=== PATIENT | female | born 1940 | race Caucasian/White ===

== ENCOUNTER → 2018-12-25 16:58 | Outpatient (CLI) | payer MEDICARE ==
[2012-12-17 23:03] VITALS: BMI 29.2
[~2018-12-25 16:58] MED LIST: ACETAMINOPHEN500 M1 PO; ARMOUR THYROID90 MG PO; AZULFIDINE500 MG PO; BACLOFEN10 MG PO; CELEBREX200 MG PO; CEREFOLIN TAB1 TAB PO; CITRUCEL500 MG PO; COLCRYS0.6 MG PO; DEMEROL50 MG PO; DILAUDID2 MG PO; ELAVIL25 MG PO; FOLATE0.4 MG PO; METOPROLOL SUCC ER PO; MEVACOR20 MG PO; OS-CAL 500+D TA1 TAB PO; POLY HIST FORTE PO; PREDNISONE5 MG PO; PRILOSEC20 MG PO; PROBIOTIC1 EAC1 PO; SYNTHROID25 MCG PO; TOPAMAX50 MG PO; TOPROL XL100 MG PO; ULTRAM50 MG; VITAMIN D2000 UNIT PO; ZOLOFT100 MG PO; ZOVIRAX200 MG
[2019-01-21 13:07] VITALS: BMI 25.9
== END | disposition home or self-care (01) ==
LOC: D.LABREF 16:58
PROVIDERS: ATTEND Orthopaedic Surgery
DX: M19.011 Primary osteoarthritis, right shoulder (principal); Z11.8 Encounter for screening for other infectious and parasitic diseases

== ENCOUNTER 2018-12-26 11:10 | Inpatient (IN) | payer MEDICARE, BC ==
[~2018-12-26] VITALS: Ht 157.5 cm; Wt 64.4 kg
[~2018-12-26 11:10] MED LIST changes: -AZULFIDINE500 MG PO; -BACLOFEN10 MG PO; -CEREFOLIN TAB1 TAB PO; -COLCRYS0.6 MG PO; -DILAUDID2 MG PO; -METOPROLOL SUCC ER PO; -POLY HIST FORTE PO; -PREDNISONE5 MG PO; -PROBIOTIC1 EAC1 PO; -SYNTHROID25 MCG PO
[2019-01-17] MEDS ORDERED: METOPROLOL SUCC ER PO (12:03)
[2019-01-17] MEDS ORDERED: COLCRYS0.6 MG PO (12:05)
[2019-01-17] MEDS ORDERED: SYNTHROID25 MCG PO (12:05)
[2019-01-17] MEDS ORDERED: POLY HIST FORTE PO (12:06)
[2019-01-17] MEDS ORDERED: AZULFIDINE500 MG PO (12:07)
[2019-01-17] MEDS ORDERED: PREDNISONE5 MG PO (12:07)
[2019-01-17] MEDS ORDERED: CEREFOLIN TAB1 TAB PO (12:08)
[2019-01-17] MEDS ORDERED: BACLOFEN10 MG PO (12:08)
[2019-01-17] MEDS ORDERED: ACETAMINOPHEN500 M1 PO (12:09)
[2019-01-17] MEDS ORDERED: PROBIOTIC1 EAC1 PO (12:09)
[2019-01-17 12:30] LABS: BASOPHILS 0.7 % (0-2); EOSINOPHILS 1.3 % (0-7); HEMATOCRIT 36.2 % (36.0-48.0); HEMOGLOBIN 12.2 g/dL (12-16); IMMATURE GRANULOCYTES 0.2 % (0-5); LYMPHOCYTES 28.7 % (15-50); MCH 33.2 pg (26.0-34.0); MCHC 33.7 g/dL (31.0-37.0); MCV 98.4 fL (80.0-100.0); MEAN PLATELET VOLUME 9.6 fL (7.4-10.4); MONOCYTES 6.5 % (2-11); NEUTROPHILS 62.6 % (40-80); PLATELET COUNT 199 10x3/uL (130-400); RBC 3.68 10x6/uL (4.00-5.40); RDW 12.4 % (11.5-14.5)
[2019-01-17 12:56] LABS: APTT 29.5 SECONDS (22.8-39.4); INR 0.95 (0.85-1.17); PROTIME 12.2 SECONDS (11.6-15.0)
[2019-01-17 13:01] LABS: ANION GAP 11.5 mmol/L (8-16); CALCIUM 9.2 mg/dL (8.5-10.1); CARBON DIOXIDE 30.4 mmol/L (21.0-32.0); CREATININE - SERUM 0.9 mg/dL (0.6-1.3); POTASSIUM - SERUM 4.9 mmol/L (3.5-5.1)
[2019-01-17 13:21] LABS: APPEARANCE HAZY (CLEAR); BILIRUBIN NEGATIVE (NEGATIVE); COLOR YELLOW (YELLOW); GLUCOSE NEGATIVE (NEGATIVE); KETONE NEGATIVE (NEGATIVE); NITRITE NEGATIVE (NEGATIVE); PROTEIN NEGATIVE (NEGATIVE); SPECIFIC GRAVITY 1.015 (1.005-1.020); UROBILINOGEN NORMAL (NORMAL)
[2019-01-17 13:22] LABS: BACTERIA FEW /hpf (NONE SEEN); EPITHELIAL CELLS 0-5 /hpf (0-5); MUCUS <1+ /lpf (NONE SEEN); RED CELLS - URINE RARE /hpf (0-5); WHITE CELLS - URINE 0-5 /hpf (0-5)
[2019-01-21] VITALS (12 sets, daily range): BP systolic 105–134; BP diastolic 50–98; Ht 157.5 cm; Wt 64.4 kg
--- NOTE | 2019-01-21 11:17 | NUR ---
PLASMA BLADE SET TO 6/8 BOVIE PAD RIGHT FLANK [id number] EXP 03/11/20
--- NOTE | 2019-01-21 23:07 | NUR ---
PT RESTING IN BED. EYES CLOSED. NO SIGNS OF DISTRESS. BREATHING EVEN AND UNLABORED. IV SITE LT HAND DRESSING CLEAN DRY AND INTACT. NO SIGNS OF INFECTION. RT SHOULDER SLING. RT SHOULDER DRESSING CLEAN DRY AND INTACT. BOWEL SOUNDS ACITVE. WILL CONTINUE PLAN OF CARE. CALL LIGHT IN REACH. BED LOWERED AND LOCKED. BED RAILS UP X2.
[2019-01-22 01:17] VITALS: BP 125/61
--- NOTE | 2019-01-22 02:53 | NUR ---
I have reviewed this patient and I concur with the Shift Assessment completed by the Licensed Practical Nurse today this shift.
[2019-01-22 04:59] VITALS: BP 108/46
[2019-01-22 06:31] LABS: HEMATOCRIT 30.1 % (36.0-48.0); HEMOGLOBIN 10.2 g/dL (12-16); MCH 32.8 pg (26.0-34.0); MCHC 33.9 g/dL (31.0-37.0); MCV 96.8 fL (80.0-100.0); MEAN PLATELET VOLUME 10.1 fL (7.4-10.4); RBC 3.11 10x6/uL (4.00-5.40); RDW 12.3 % (11.5-14.5); WBC 7.4 10x3/uL (4.8-10.8)
--- NOTE | 2019-01-22 07:23 | NUR ---
PT IS RESTING IN BED WITH EYES OPEN. RESPIRATIONS ARE EVEN AND UNLABORED. FAMILY IS AT BEDSIDE. PT REPORTS SLIGHT PAIN. HAT BRUSHER MACHINE DILAUDID AVAILABLE. RIGHT ARM/SHOULDER IN SLING. PT DENIES PRESENCE OF N/V. PT REPORTS FEELING TO RIGHT UPPER EXTREMITY AND IS ABLE TO WIGGLE FINGERS. BED IS IN THE LOWEST POSITION. CALL LIGHT AND BEDSIDE TABLE ARE WITHIN REACH. SIDE RAILS X 2. PT DENIES FURTHER NEEDS. WILL CONT TO MONITOR.
[2019-01-22 08:07] VITALS: BP 106/54
[2019-01-22] MEDS ORDERED: DILAUDID2 MG PO (08:49)
--- NOTE | 2019-01-22 10:18 | NUR ---
ALL DISCHARGE INSTRUCTIONS COVERED WITH PT AND PT SPOUSE. DRESSING TO RIGHT SHOULDER CHANGED PER ORDER. PT GIVEN EXTRA SUPPLIES FOR DRESSING CHANGE IN 7 DAYS. PRINTED RX FOR DILAUDID TABS GIVEN TO PT. PT REUQESTS THAT SIGN DISCHARGE PAPERS DUE TO BEING RIGHT HANDED. PT DENIES FURTHER QUESTIONS CONCERNS AT THIS TIME. PIV REMOVED FROM LEFT HAND REMOVED WITH CATHETER TIP INTACT. DRESSING APPLIED. ALL DISCHARGE PAPERS SIGNED. PT DENIES FURTHER NEEDS.
--- NOTE | 2019-01-22 11:23 | NUR ---
PT TRANSPORTED FROM ROOM VIA WHEELCHAIR BY HOSPITAL STAFF. SLING IN ON RIGHT SHOULDER. PT DENIES FURTHER QUESTIONS/CONCERNS/NEEDS AT THIS TIME.
--- NOTE | 2019-01-31 09:16 | OP ---
PATIENT NAME: WOO MURO MEDICAL RECORD: [id number] :41 LOCATION:D[id number] ADMISSION DATE:01/21/19 SURGEON: EMILE BUNN MD DATE OF OPERATION: 01/21/2019 PREOPERATIVE DIAGNOSIS: Degenerative arthritis of the right shoulder. POSTOPERATIVE DIAGNOSIS: Degenerative arthritis of the right shoulder. PROCEDURE: Total shoulder arthroplasty. SURGEON: Emile Bunn MD [employer] UTILITY WORKER: Chintan Griffin APN INTRAOPERATIVE COMPLICATIONS: None. SUMMARY OF PATHOLOGIC FINDINGS: The patient was indeed found to have a substantial glenohumeral arthrosis. IMPLANTS USED: Tornier total shoulder arthroplasty with a size 43 x 16 Aequalis head, standard 6B stem press fit and a quarter-lock peg glenoid small. OPERATIVE SUMMARY IN DETAIL: After obtaining the appropriate preoperative orthopedic surgery consent as well as anesthetic consultation, evaluation and clearance, the patient was brought to the operating room and placed on the operating table in supine position. After general laryngeal mask airway was administered, the patient was placed in the beach chair position. All pressure points were well padded. She was held firmly to the operating table using the vacuum pack suction system. Right upper extremity and shoulder were then prepped and draped in routine sterile fashion. The arm was held in the Trimano arm holding device. After appropriate prep and drape was done, deltopectoral incision was created. The cephalic vein was identified and protected. The deltoid was retracted using the Brown retractor. Clavipectoral fascia was incised. Conjoined tendon was gently retracted medially. Subscapularis was taken down. The humeral head was then dislocated into the incision site. Proximal humeral cut was done by serial and sequential reaming and broaching for a size 6. A 6 trial was put into place with the head protection cover. Attention was then turned to the glenoid. Circumferential labrectomy was then followed by the appropriate reaming and preparation of the glenoid for a size small pegged glenoid. After drying this, the pegged glenoid was cemented into place. All excess cement was removed. The cement was allowed to harden before proceeding. After the cement was dry, attention was then turned to the proximal humerus. A size 6B glenoid with the appropriate size 43 humeral head was put into place and tamped into position. The shoulder was then reduced, taken through a range of motion, had the appropriate posterior subluxation of approximately half. Having completed this, the subscapularis was reapproximated back into the lesser tuberosity in a transosseous fashion while doing a biceps tenodesis done by Elvin Griffin and final wound closure with #1 Vicryl, 2-0 Vicryl and skin silke. Sterile dressings were applied. The patient was awakened and taken to recovery room in stable condition. All final needle and sponge counts were correct. TRANSINT:[id number] Voice Confirmation ID: [id number] DOCUMENT ID: [id number] OPERATIVE REPORT [id number] WOO MURO MD, EMILE WISE at 0916 CC: [id number] DICTATION DATE: 01/30/19 1127 COPPER TAPPER: 01/30/19 1223 DIS IN 01/22/19 [facility] [address] [place] [address]
== END 2019-01-22 11:28 | disposition home or self-care (01) | DRG 483 ==
LOC: D.SDCHOLD 01-21 07:40 → D.MS 01-21 07:40 → D.SDCHOLD 01-21 09:45 → D.MS 01-21 11:59 → D.SDCHOLD 01-21 12:50 → D.MS 01-22 11:28
PROVIDERS: ADMIT Orthopaedic Surgery; ATTEND Orthopaedic Surgery
PROC: 0RRJ0JZ Replacement of Right Shoulder Joint with Synthetic Substitute, Open Approach (ICD-10-PCS; principal; 2019-01-21 09:45)
DX: M19.011 Primary osteoarthritis, right shoulder (principal)

== ENCOUNTER 2020-10-29 07:58 | Day surgery (SDC) | payer MEDICARE, BC ==
[2020-10-26 13:10] LABS: EOSINOPHILS 4.4 % (0-7); HEMATOCRIT 34.3 % (36.0-48.0); HEMOGLOBIN 11.5 g/dL (12-16); LYMPHOCYTES 15.3 % (15-50); MCH 32.5 pg (26.0-34.0); MCHC 33.5 g/dL (31.0-37.0); MEAN PLATELET VOLUME 7.1 fL (7.4-10.4); MONOCYTES 8.4 % (2-11); NEUTROPHILS 70.9 % (40-80); PLATELET COUNT 279 10x3/uL (130-400); RBC 3.54 10x6/uL (4.00-5.40); RDW 13.4 % (11.5-14.5); WBC 7.6 10x3/uL (4.8-10.8)
[2020-10-26 13:16] LABS: ANION GAP 14.2 mmol/L (8-16); CALCIUM 9.3 mg/dL (8.5-10.1); CARBON DIOXIDE 25.7 mmol/L (21.0-32.0); CREATININE - SERUM 1.2 mg/dL (0.6-1.3); POTASSIUM - SERUM 4.9 mmol/L (3.5-5.1)
[~2020-10-29] VITALS: Ht 157.5 cm; Wt 63.6 kg
[2020-10-29] VITALS (13 sets, daily range): BP systolic 112–160; BP diastolic 53–82; Ht 157.5 cm; Wt 63.6 kg
--- NOTE | ~2020-10-29 | OP ---
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 PROCEDURE: Anterior cervical diskectomy and fusion at C3-C4 with PEEK interbody cage with Sara bone allograft, separate [facility] anterior cervical plate and screws. SURGEON: Moises Abraham MD DESCRIPTION OF PROCEDURE: After induction of general endotracheal anesthesia, the patient was positioned supine on the operating table. Neck was prepped and draped in the usual sterile fashion. Fluoroscopic x-ray and freer localized the C3-C4 interspace. After infiltration of 1:100,000 epinephrine with 1% lidocaine, a transverse skin incision was carried out from the midline to the sternocleidomastoid muscle. The platysma was divided with sharp dissection. Using Metzenbaum scissors, I proceeded in an avascular plane medial to the carotid sheath. The C3-C4 interspace was identified with fluoroscopic x-ray and a spinal needle. The longus colli muscles were elevated from the bodies of C3 and C4. Self-retaining retractors were placed deep to the longus colli muscles. Burgin distracting pins were placed in the bodies of C3 and C4. C3-C4 interspace was incised with a #11 blade. Disk material was removed with pituitary rongeurs and curettes. There was an obvious large disk herniation through the posterior longitudinal ligament. This was removed with pituitary rongeurs. This relieved spinal cord compression. The posterior longitudinal ligament was removed. There was no further disk herniation discovered. A PEEK interbody cage was placed in the disk space under distraction. Prior to this, the interbody cage was filled with Sara bone allograft with bone stem cells. A separate [facility] anterior plate and screws was used to span the C3-C4 interspace. Self-drilling screws were placed through the holes in the plate. Locking cams were tightened down over the screw heads. Good position of the hardware was confirmed with fluoroscopic x-ray. Meticulous hemostasis was maintained throughout the wound. Wound was irrigated with copious amounts of Ancef irrigant solution. The retractor was removed. The platysma and subdermal layer was closed with interrupted 4-0 Vicryl suture. The skin was closed with Steri-Strips and benzoin. A sterile dressing was applied to the wound. The patient was awakened in good condition and taken to recovery. All counts were reported as correct. Estimated blood loss was minimal. TRANSINT:[id number] Voice Confirmation ID: [id number] DOCUMENT ID: [id number] OPERATIVE REPORT [id number] WOO MURO JOHN MD CC: [id number] DICTATION DATE: 11/02/20940 PATHOLOGIST: 11/02/20957 DEP SDC 10/30/20 [place] [id number]
[~2020-10-29 07:58] MED LIST changes: +AZULFIDINE500 MG PO; +BACLOFEN10 MG PO; +CEREFOLIN TAB1 TAB PO; +COLCRYS0.6 MG PO; +DILAUDID2 MG PO; +GABAPENTIN100 MG PO; +HYDROXYCHLOROQ200 MG PO; +MELATONIN10 M1 PO; +METOPROLOL SUCC ER PO; +MOBIC7.5 MG PO; +POLY HIST FORTE PO; +PREDNISONE5 MG PO; +PRESERVISION PO; +PROBIOTIC1 EAC1 PO; +PROMETRIUM100 MG PO; +SYNTHROID25 MCG PO; +ULTRAM50 MG PO
--- NOTE | 2020-10-29 13:46 | NUR ---
PT ARRIVES TO ROOM VIA BED ESCORTED BY RECOVERY ROOM STAFF. PT IS AROUSABLE WITH VERBAL STIMULATION AND ANSWERS ALL QUESTIONS APPROPRIATELY. FREQUENT VITALS STARTED. VSS. BED ALARM IS ON AND WORKING. PT SPOUSE AT BEDSIDE. PT DENIES PRESENCE OF PAIN/N/V AT THIS TIME. PT DENIES PRESENCE OF SOB/DYSPNEA AT THIS TIME. DRESSING TO LEFT NECK IS CDI. BED IS IN THE LOWEST POSITION. CALL LIGHT AND BEDSIDE TABLE ARE WITHIN REACH. SIDE RAILS X 2. PT AND PT SPOUSE DENY FURTHER NEEDS. WILL CONT TO MONITOR.
[2020-10-30] VITALS: BP 144/60
[2020-10-30 04:00] VITALS: BP 148/66
--- NOTE | 2020-10-30 08:00 | NUR ---
PATIENT IN BED WITH IV INTACT. NO COMPLAINTS OR SIGNS OF DISTRESS. BSCDS ON AND WORKING. CALL LIGHT WITHIN REACH.
[2020-10-30] MEDS ORDERED: MEDROL DOSE PACK4 MG PO (08:40)
[2020-10-30] MEDS ORDERED: HYDROCODONE-AC1 EAC2 PO (08:40)
[2020-10-30 09:39] VITALS: BP 151/76
--- NOTE | 2020-10-30 11:30 | NUR ---
PATIENT RECIEVED DC INSTRUCTIONS. VERBALIZED UNDERSTANDING. NO QUESTIONS AT THIS TIME. AT BEDSIDE. PRESCRIPTON GIVEN TO . IV REMOVED WITH CATH TIP INTACT. EXPLAINED TO PIC UP MEDROL AT PHARMACY. WAITNG FOR TRANSPORTATION TO TAKE PATIENT DOWN TO PRIVATE VEHICLE.
== END 2020-10-30 12:00 | disposition home or self-care (01) ==
LOC: D.OPS 07:58 → D.MS 13:41 → D.OPS 10-30 12:00
PROVIDERS: Anesthesiology; ATTEND Neurological Surgery
DX: M50.21 Other cervical disc displacement, high cervical region (principal); M54.12 Radiculopathy, cervical region; I50.9 Heart failure, unspecified; I10 Essential (primary) hypertension